=== PATIENT | male | born 2000 | race Two or more races ===

== ENCOUNTER → 2023-01-22 | Emergency (ER) | payer MEDICAID ==
[~2023-01-22] VITALS: Ht 175.3 cm; Wt 106.1 kg
[2023-01-22 04:55] VITALS: BP 130/75; PULSE 79; RESP 20; O2SAT 99
== END ==
LOC: ER 04:44
DX: R50.9 Fever, unspecified (principal); H92.03 Otalgia, bilateral; Z53.21 Procedure and treatment not carried out due to patient leaving prior to being seen by health care provider